=== PATIENT | male | born 1950 | race Caucasian/White ===

== ENCOUNTER 2023-07-04 12:08 | Emergency (ER) | payer MEDICARE, OTHER ==
[2023-07-04 12:29] VITALS: TEMP 98.2
--- NOTE | 2023-07-04 12:34 | ED ---
General Adult HPI - General Chief complaint: Fall Stated complaint: Fall Time Seen by Provider: 07/04/23 12:21 Source: patient Mode of arrival: wheelchair Limitations: no limitations - History of Present Illness Initial comments: Dictation was produced using [employer] dictation software. please excuse any grammatical, word or spelling errors. Chief Complaint: 73-year-old male presents emergency department with left-sided chest pain after fall History of Present Illness: Patient 73-year-old male 2 days his birthday. He states he was getting ready to go out gardening when he fell. He lost his footing after tripping. He landed on his left side on the concrete. Patient complaining of pain to his left lower chest and left upper abdomen. Patient N uys any anticoagulation use. Denies any head trauma. Patient states his pain is worse when he tries to take a deep breath or press in that area. The ROS documented in this emergency department record has been reviewed and confirmed by me. Those systems with pertinent positive or negative responses have been documented in the HPI. All other systems are other negative and/or noncontributory. - Related Data Home Medications Medication Instructions Recorded Confirmed Aspirin 81 mg PO DAILY 01/05/15 01/29/15 Cyanocobalamin [Vitamin B-12] 1,500 mcg PO DAILY 01/05/15 01/29/15 Folic Acid 1,600 mcg PO DAILY 01/05/15 01/29/15 Pantoprazole Sodium 40 mg PO DAILY 01/05/15 01/29/15 Allergies Allergy/AdvReac Type Severity Reaction Status Date / Time No Known Allergies Allergy Verified 07/04/23 12:15 Review of Systems ROS Statement: Those systems with pertinent positive or pertinent negative responses have been documented in the HPI. ROS Other: All systems not noted in ROS Statement are negative. Past Medical History Past Medical History: GERD/Reflux Additional Past Medical History / Comment(s): Does see a Garage Hand to R/O any heart problems because of his GERD. History of Any Multi-Drug Resistant Organisms: None Reported Past Surgical History: Appendectomy, Orthopedic Surgery Additional Past Surgical History / Comment(s): lety foot surgery-fx Past Anesthesia/Blood Transfusion Reactions: No Reported Reaction Past Psychological History: No Psychological Hx Reported Smoking Status: Never smoker Past Alcohol Use History: None Reported Past Drug Use History: None Reported - Past Family History Father Family Medical History: Cancer Additional Family Medical History / Comment(s): Unknown General Exam - General Exam Comments Initial Comments: PHYSICAL EXAM: General Impression: Alert and oriented x3, acute distress secondary to pain HEENT: Normocephalic atraumatic, extra-ocular movements intact, pupils equal and reactive to light bilaterally, mucous membranes moist. Cardiovascular: Heart regular rate and rhythm Chest: Able to complete full sentences, no retractions, no tachypnea Abdomen: abdomen soft, non-tender, non-distended, no organomegaly Musculoskeletal: Pulses present and equal in all extremities, no peripheral edema, palpatory tenderness along the left chest and left upper abdomen Motor: no focal deficits noted Neurological: CN II-XII grossly intact, no focal motor or sensory deficits noted Skin: Intact with no visualized rashes Psych: Normal affect and mood Limitations: no limitations Course Vital Signs 07/04/23 07/04/23 12:13 15:42 Temperature 98.2 F Pulse Rate 97 90 Respiratory 20 18 Rate Blood Pressure 125/82 113/76 O2 Sat by Pulse 97 93 L Oximetry EKG Findings - EKG Comments: EKG Findings:: My EKG interpretation: Ventricular rate 91, normal sinus rhythm, QRS 130, QTc 354, right bundle branch block no VA prolongation, no QTC prolongation, no ST or T-wave changes noted. Overall, this EKG is unremarkable Medical Decision Making - Medical Decision Making Was pt. sent in by a medical professional or institution ([facility] Wan, [facility], urgent care, hospital, or fdc...) When possible be specific @ -No Did you speak to anyone other than the patient for history (EMS, parent, family, police, friend...)? What history was obtained from this source @ -No Did you review nursing and triage notes (agree or disagree)? Why? @ -I reviewed and agree with nursing and triage notes Were old charts reviewed (outside hosp., previous admission, EMS record, old EKG , old radiological studies, urgent care reports/EKG's, fdc records)? Report findings @ -No old charts were reviewed Differential Diagnosis (chest pain, altered mental status, abdominal pain women, abdominal pain men, vaginal bleeding, musculoskeletal, weakness, fever, dyspnea, syncope, headache, dizziness, GI bleed, back pain, seizure, CVA, palpatations, mental health)? @ -Differential Chest Pain: Stable Angina, Unstable Angina, STEMI, NSTEMI Aortic Dissection, Pneumothorax, Musculoskeletal, Esophageal Spasm GERD, Cholecystitis, Pancreatitis, Zoster, this is not meant to be an all-inclusive list. EKG interpreted by me (3pts min.). @ -See above X-rays interpreted by me (1pt min.). @ -None done CT interpreted by me (1pt min.). @ -CT of the M pelvis shows no acute traumatic processes. There is incidental findings of enlarged lymph nodes to the mesentery U/S interpreted by me (1pt. min.). @ -None done What testing was considered but not performed or refused? (CT, X-rays, U/S, labs)? Why? @ -None What meds were considered but not given or refused? Why? @ -None Did you discuss the management of the patient with other professionals (professionals i.e. , PA, [facility] [facility], lab, RT, psych nurse, social science instructor, stevedoring supervisor, teacher, traffic maintenance officer, rn case management)? Give summary @ -No Was smoking cessation discussed for >3mins.? @ -No Was critical care preformed (if so, how long)? @ -No Were there social determinants of health that impacted care today? How? (Homelessness, low income, unemployed, alcoholism, drug addiction, transportation, low edu. Level, literacy, decrease access to med. care, group home, rehab)? @ -No Was there de-escalation of care discussed even if they declined (Discuss DNR or withdrawal of care, Hospice)? DNR status @ -No What co-morbidities impacted this encounter? (DM, HTN, Smoking, COPD, CAD, Cancer, CVA, ARF, Chemo, Hep., AIDS, mental health diagnosis, sleep apnea, morbid obesity)? @ -None Was patient admitted / discharged? Hospital course, mention meds given and route, prescriptions, significant lab abnormalities, going to OR and other perti nent info. @ -73-year-old male presents to the emergency department after open fall. States that he has chest pain and upper abdominal pain to the left. Vital signs stable. Physical examination shows distress male with no obvious traumatic injuries externally. Laboratory evaluation unremarkable. CT shows no acute processes. There were incidental findings that patient was made aware of to fo llow-up with his primary care doctor. Patient given starter pack for pain medications and discharge. Undiagnosed new problem with uncertain prognosis? @ -No Drug Therapy requiring intensive monitoring for toxicity (Heparin, Nitro, Insulin, Cardizem)? @ -No Were any procedures done? @ -No Diagnosis/symptom? Acute, or Chronic, or Acute on Chronic? Uncomplicated (without systemic symptoms) or Complicated (systemic symptoms)? @ -Chest contusion Side effects of treatment? @ -No Exacerbation, Progression, or Severe Exacerbation? @ -No Poses a threat to life or bodily function? How? (Chest pain, USA, VA, pneumonia, PE, COPD, DKA, ARF, appy, cholecystitis, CVA, Diverticulitis, Homicidal, Pugh icidal, threat to staff... and all critical care pts) @ -No - Lab Data Result diagrams: 07/04/23 12:35 07/04/23 12:35 Lab Results 07/04/23 07/04/23 07/04/23 Range/Units 12:35 12:35 12:35 WBC 9.3 (3.8-10.6) k/uL RBC 4.51 (4.30-5.90) m/uL Hgb 14.7 (13.0-17.5) gm/dL Hct 45.2 (39.0-53.0) % MCV 100.1 H (80.0-100.0) fL MCH 32.7 (25.0-35.0) pg MCHC 32.7 (31.0-37.0) g/dL RDW 13.0 (11.5-15.5) % Plt Count 365 (150-450) k/uL MPV 8.5 Neutrophils % 65 % Lymphocytes % 23 % Monocytes % 6 % Eosinophils % 3 % Basophils % 1 % Neutrophils # 6.1 (1.3-7.7) k/uL Lymphocytes # 2.2 (1.0-4.8) k/uL Monocytes # 0.6 (0-1.0) k/uL Eosinophils # 0.3 (0-0.7) k/uL Basophils # 0.1 (0-0.2) k/uL PT 11.2 (10.0-12.5) sec INR 1.0 (<1.2) APTT 22.4 (22.0-30.0) sec Sodium 133 L (137-145) mmol/L Potassium 4.9 (3.5-5.1) mmol/L Chloride 102 (98-107) mmol/L Carbon Dioxide 21 L (22-30) mmol/L Anion Gap 10 mmol/L BUN 19 (9-20) mg/dL Creatinine 0.64 L (0.66-1.25) mg/dL Est GFR (CKD-EPI)AfAm >90 (>60 ml/min/1.73 sqM) Est GFR (CKD-EPI)NonAf >90 (>60 ml/min/1.73 sqM) Glucose 116 H (74-99) mg/dL Calcium 9.0 (8.4-10.2) mg/dL Total Bilirubin 1.2 (0.2-1.3) mg/dL AST 48 (17-59) U/L ALT 34 (4-49) U/L Alkaline Phosphatase 72 (38-126) U/L Total Protein 8.2 (6.3-8.2) g/dL Albumin 4.7 (3.5-5.0) g/dL Lipase 31 (23-300) U/L Disposition Clinical Impression: Contusion, chest wall Disposition: HOME SELF-CARE Condition: Good Instructions (If sedation given, give patient instructions): Fall Prevention for Older Adults (ED) Is patient prescribed a controlled substance at d/c from ED?: No Referrals: Uma Ewing MD [Primary Care Provider] - 1-2 days Time of Disposition: 15:59
[2023-07-04] MEDS: SODIUM CHLORIDE 0.9% 1,000 ML IV STA (12:40)
[2023-07-04] MEDS: MORPHINE SULFATE 4 MG/ML SYRINGE IV STA (12:42)
[2023-07-04 12:54] LABS: Basophils # (A) 0.1 k/uL (0-0.2); Basophils % (A) 1 %; Eosinophils # (A) 0.3 k/uL (0-0.7); Eosinophils % (A) 3 %; HCT 45.2 % (39.0-53.0); HGB 14.7 gm/dL (13.0-17.5); Lymphocytes # (A) 2.2 k/uL (1.0-4.8); Lymphocytes % (A) 23 %; MCH 32.7 pg (25.0-35.0); MCHC 32.7 g/dL (31.0-37.0); MCV 100.1 fL (80.0-100.0); Mean Platelet Volume 8.5; Monocytes # (A) 0.6 k/uL (0-1.0); Monocytes % (A) 6 %; Neutrophils # (A) 6.1 k/uL (1.3-7.7); Neutrophils % (A) 65 %; Platelet Count 365 k/uL (150-450); RBC 4.51 m/uL (4.30-5.90); WBC 9.3 k/uL (3.8-10.6)
[2023-07-04 13:04] LABS: Partial Thromboplastin Time 22.4 sec (22.0-30.0); Prothrombin Time 11.2 sec (10.0-12.5)
[2023-07-04] MEDS: HYDROmorphone 1 MG/ML 1 ML SYRINGE IVP STA ×2 (13:16→15:18)
[2023-07-04 13:35] LABS: ALT 34 U/L (4-49); African American GFR (CKD) >90 (>60 ml/min/1.73 sqM); Albumin 4.7 g/dL (3.5-5.0); Anion Gap 10 mmol/L; Blood Urea Nitrogen 19 mg/dL (9-20); Carbon Dioxide 21 mmol/L (22-30); Chloride 102 mmol/L (98-107); Glucose 116 mg/dL (74-99); Lipase 31 U/L (23-300); Non-African American GFR(CKD) >90 (>60 ml/min/1.73 sqM); Sodium 133 mmol/L (137-145); Total Bilirubin 1.2 mg/dL (0.2-1.3); Total Protein 8.2 g/dL (6.3-8.2)
[2023-07-04 13:38] LABS: AST 48 U/L (17-59); Alkaline Phosphatase 72 U/L (38-126); Potassium 4.9 mmol/L (3.5-5.1)
--- NOTE | 2023-07-04 15:41 | CT ---
EXAMINATION TYPE: CT ChestAbdPelvis w con DATE OF EXAM: 07/04/2023 INDICATION: Pt fall, c/o severe pain on LT side COMPARISON: None CT DLP: 1989.9 mGycm CONTRAST: Performed without Oral Contrast and with IV Contrast, patient injected with 100 mL of Isovue 300. TECHNIQUE: Axial images at 5 mm thick sections. Reconstructed images in the coronal plane. Delayed images through the kidneys. FINDINGS: CT CHEST: Portion of the thyroid visualized is normal. No suspicious lung nodules or focal infiltrates are present. No enlarged mediastinal or hilar adenopathy is evident. Some calcified lymphadenopathy is within the subcarinal region and within the right infrahilar region. Some pleural calcifications on the posterior lateral right lung. Some minimal calcifications within p leural margins on the left. Calcifications along the right diaphragm. Correlate for prior asbestos ex posure. The ascending aorta diameter at the level of the main pulmonary artery is 4.1 cm. The main pulmonary artery diameter at the bifurcation is 3.[address] ABDOMEN: There are scattered lymph nodes within the mid abdomen. These are borderline in size. Mil d increased density is within the surrounding mesenteric fat. Example image series 201 image 83. Kyle tional workup is recommended. Consider lymphoma within the differential. Liver: Mild fatty alterations within the liver Spleen: Normal Pancreas: There is fatty infiltration of the pancreas. Adrenal glands: The adrenal glands are normal. Gallbladder: Distended Kidneys: No masses are evident. No hydronephrosis is present. No cysts are present. Delayed images were obtained through the kidneys, which remain unremarkable. Aorta: Vascular calcification is within the aorta. Inferior vena cava: Normal. CT PELVIS: Loops of bowel within the abdomen and pelvis are normal. This study is without oral contrast limi ting bowel evaluation. Appendix: Not identified. No dilated tubular structure or inflammatory changes evident. Urinary bladder: Distended Genitourinary structures: Prostate contains calcification. Osseous structures: No suspicious lytic or sclerotic lesions. No displaced rib fractures are evident. There is some kyphosis of the lower thoracic spine. Schmorl's node formation is likely lower thoraci c vertebral body T9. IMPRESSION: 1. No acute posttraumatic changes identified. 2. Mild mesenteric increased density with multiple borderline size lymph nodes within the mid mesente ry. Finding is nonspecific. Consider lymphoma within the differential. Follow-up is recommended. 3. Clinical consideration for prior asbestos exposure.
[2023-07-04 16:04] VITALS: BP 113/76; PULSE 90; RESP 18
[2023-07-04] MEDS: LIDOCAINE 4% PATCH TOPICAL ONE (16:06)
[2023-07-04] MEDS: ACET/COD 300 MG/30 MG STARTER PACK 6 TAB BTL PO STA (16:07)
== END 2023-07-04 16:15 | disposition home or self-care (01) ==
LOC: EC 12:08
DX: S20.219A Contusion of unspecified front wall of thorax, initial encounter (principal); W01.0XXA Fall on same level from slipping, tripping and stumbling without subsequent striking against object, initial encounter
CPT/HCPCS: 99285; 96374; 96375; 96376; 36415; 93005; 80053; 83690; 85025; 85610; 85730; 71260; 74177; J2270; J1170; Q9967; 96361

== ENCOUNTER → 2024-07-31 | Outpatient (CLI) | payer MEDICARE ==
[2024-07-31 15:04] LABS: Basophils # (A) 0.07 X 10*3/uL (0.00-0.10); Basophils % (A) 0.9 %; Eosinophils # (A) 0.16 X 10*3/uL (0.04-0.35); HCT 44.1 % (39.6-50.0); HGB 14.9 g/dL (13.0-17.0); Lymphocytes # (A) 1.83 X 10*3/uL (0.90-5.00); Lymphocytes % (A) 23.1 %; MCH 33.1 pg (27.0-32.0); MCHC 33.8 g/dL (32.0-37.0); Monocytes # (A) 0.83 X 10*3/uL (0.20-1.00); Monocytes % (A) 10.5 %; NRBC Per 100 WBC 0 X 10*3/uL (0.00-0.01); Neutrophils # (A) 5.01 X 10*3/uL (1.80-7.70); Neutrophils % (A) 63.2 %; Platelet Count 317 X 10*3/uL (140-440); RDW 13.5 % (11.5-14.5); WBC 7.92 X 10*3/uL (4.50-10.00)
[2024-07-31 15:19] LABS: Carbon Dioxide 26.9 mmol/L (21.6-31.8); Chloride 102 mmol/L (96-109); Potassium 3.9 mmol/L (3.5-5.5); Sodium 141 mmol/L (135-145)
== END | disposition home or self-care (01) ==
LOC: LABPAT 10:42
PROVIDERS: ATTEND Internal Medicine Interventional Cardiology
DX: Z01.812 Encounter for preprocedural laboratory examination (principal); R07.9 Chest pain, unspecified
CPT/HCPCS: 80051; 82565; 84520; 85025

== ENCOUNTER 2024-08-23 06:11 | Day surgery (SDC) | payer MEDICARE, OTHER ==
[~2024-08-23 06:11] MED LIST: ALPRAZolam 0.25 MG TAB PO PRN; ALPRAZolam 0.5 MG TAB PO PRN; NITROGLYCERIN SL TABS 0.4 MG TAB SUBLINGUAL PRN
[2024-08-23] MEDS: SODIUM CHLORIDE 0.9% 1,000 ML in EMPTY BAG 1 BAG IV SCH (06:47)
[2024-08-23] MEDS: ATORVASTATIN 80 MG TAB PO STA (06:48)
[2024-08-23] MEDS: IV FLUID CONTINUATION 1,000 ML IV ONE (06:48)
[2024-08-23] MEDS: ASPIRIN 325 MG TAB PO STA (06:48)
[2024-08-23 06:51] VITALS: TEMP 97.8
[2024-08-23] MEDS: MIDAZOLAM 2 MG/2 ML VIAL IVP ONE (08:59)
[2024-08-23] MEDS: LIDOCAINE 1% INJ 10MG/ML (20 ML MDV) SQ ONE ×2 (09:02→09:03)
[2024-08-23] MEDS: VERAPAMIL SYRINGE (5 MG/10 ML) INTRAARTER ONE (09:03)
[2024-08-23] MEDS: HEPARIN SODIUM 1,000 UN/ML (10ML VL) IVP ONE (09:05)
[2024-08-23] MEDS: fentaNYL (PF) 50 MCG/1 ML VIAL IVP ONE (09:09)
[2024-08-23] MEDS: HEPARIN SODIUM,PORCINE 10,000 UNIT in SODIUM CHLORIDE 0.9% 1,000 ML IRRIGATION PRN (09:11)
[2024-08-23] MEDS: HEPARIN SODIUM,PORCINE (1 ML) 2,500 UNIT in SODIUM CHLORIDE 0.9% 250 ML IRRIGATION PRN (09:11)
[2024-08-23] MEDS: IOPAMIDOL-370 100ML BTL INJ ONE (09:11)
[2024-08-23] MEDS ORDERED: RX INFO: IV CONTRAST WAS GIVEN 1 EACH MISC MISCELLANE PRN (09:28)
[2024-08-23] MEDS ORDERED: SODIUM CHLORIDE 0.9% 1,000 ML IV SCH (09:30)
--- NOTE | 2024-08-23 09:31 | P.PCN ---
Date of Procedure: 08/23/24 Operative Findings: CARDIAC CATHETERIZATION PERFORMING PHYSICIAN: Scooter Grider MD, RPVI PROCEDURE PERFORMED: 1. Selective right and left coronary angiogram 2. Left heart catheterization 3. Ultrasound-guided access of the right radial artery INDICATION: Chest discomfort concerning for angina COMPLICATION: None APPROACH: Right radial artery LEVEL OF SEDATION: Moderate with a sedation length of 11 minutes PROCEDURE DESCRIPTION: After obtaining an informed consent, the patient was brought to cardiac calibration laboratory technician. Local anesthesia was performed using lidocaine subcutaneously. The right radial artery was cannulated using Seldinger technique, under ultrasound guidance, the guidewire passed easily, following that we advanced a 5-Surinamese sheath dilator assembly, the wire and dilator were removed and sheath was flushed. Following that, 2 mg of verapamil along with 5000 unit heparin were given. Selective right and left coronary angiogram using a 5-Surinamese JR4 and JL 3.5 catheters. Following that we did left heart catheterization using 5-Surinamese pigtail catheter. The procedure was completed there was no complication. SELECTIVE CORONARY ANGIOGRAM: The right coronary artery: Large caliber vessel and a dominant vessel with mild to moderate disease involving the proximal portion Left main: Has mild to moderate disease appears to be in the range of 20 to 30% all The left circumflex: Large caliber vessel nondominant vessel with no evidence of high-grade stenosis The left anterior descending artery: Large caliber vessel with no evidence of high-grade stenosis as well HEMODYNAMICS: The LVEDP was 8 mmHg with no significant gradient across aortic valve CONCLUSION: 1. 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 Normal left-sided filling pressure POSTPROCEDURE MANAGEMENT: Medical treatment
[2024-08-23 11:27] VITALS: BP 117/64
[2024-08-23 11:39] VITALS: PULSE 66
[2024-08-23 12:05] VITALS: RESP 16
== END 2024-08-23 12:31 | disposition home or self-care (01) ==
LOC: CATHCVL 06:11
PROVIDERS: ATTEND Internal Medicine Interventional Cardiology
DX: I25.110 Atherosclerotic heart disease of native coronary artery with unstable angina pectoris (principal); I10 Essential (primary) hypertension; E78.5 Hyperlipidemia, unspecified; I77.810 Thoracic aortic ectasia; I08.3 Combined rheumatic disorders of mitral, aortic and tricuspid valves; I65.23 Occlusion and stenosis of bilateral carotid arteries; Z79.51 Long term (current) use of inhaled steroids; Z79.82 Long term (current) use of aspirin; Z79.899 Other long term (current) drug therapy; Z87.891 Personal history of nicotine dependence
CPT/HCPCS: 93458; C1769; C1894; J2250; J1644 ×3; J2003; Q9967; J3010

== ENCOUNTER → 2024-08-26 | Outpatient (CLI) | payer OTHER ==
--- NOTE | 2024-08-26 15:11 | CTL ---
EXAMINATION TYPE: CT Low Dose Lung DATE OF EXAM: 08/26/2024 3:00 PM COMPARISON: 07/04/2023. CLINICAL INDICATION: Male, 74 years old with history of Z12.2 LUNG CA SCR Z87.891; pt quit smoking 15 years ago, pt smoked 1 1/2 pks/day x 30-40 yrs, history of tobacco use. TECHNIQUE: Multiple axial non-contrast scans were obtained from approximately the lung apices through the upper abdomen. Coronal and sagittal reformatted images were obtained. Low dose technique was uti lized. MIP were created on a separate workstation and submitted for review. CT DLP: 93 mGycm, Automated exposure control for dose reduction was used. CT Contrast: Contrast used: None Oral contrast used: None FINDINGS: Lack of intravenous contrast and low dose technique limits the evaluation of the vascular and soft ti ssue structures. LUNGS: No evidence of pulmonary fibrosis. No evidence of focal consolidation, pneumothorax or pleural effusion. Centrilobular emphysema changes. Calcifications along the right diaphragm. An scattered th roughout the pleura. Nodules: RUL: None. RML: None. RLL: None. ADEEL: None. LLL: None. AIRWAY: Patent and unremarkable. HEART: Size within normal limits. No significant coronary artery calcifications. MEDIASTINUM: No gross evidence of adenopathy. VASCULATURE: No aortic aneurysm. MUSCULOSKELETAL: Moderate disc degeneration changes are present throughout the thoracolumbar spine. N ew compression deformity of the T7 vertebral body with near complete height loss centrally. SOFT TISSUES/LYMPH NODES: Unremarkable. LOWER NECK: No significant findings. UPPER ABDOMEN: No significant findings. IMPRESSION: 1. No clinically significant pulmonary nodules. 2. Mild emphysema. 3. Scattered pleural calcifications correlate for history of asbestos acute exposure. 4. New compression deformity of the T7 vertebral body with near complete height loss centrally. Corre lated back pain considered MRI evaluation. CT LUNG RAD AND CT CHEST RECOMMENDATION: Lung-Rad 1 Negative: Continue annual screening with LDCT in 12 months. S Modifier (other clinically significant findings): None Recommend smoking cessation (if current smoker), or continuation of smoking cessation (if prior smoke r). Annual screening for lung cancer with low-dose computed tomography is recommended in adults ages 55 to 77 years who have a 30 pack-year smoking history and currently smoke or have quit within the pa st 15 years. Screening should be discontinued once a person has not smoked for 15 years or develops a health problem that substantially limits life expectancy or the ability or willingness to have curat lory lung surgery. Lung rads 2021 [email or web address] [facility], , 08/26/2024 3:09 PM
== END | disposition home or self-care (01) ==
LOC: RADCTMAIN 14:12
PROVIDERS: ATTEND Internal Medicine Pulmonary Disease
DX: Z12.2 Encounter for screening for malignant neoplasm of respiratory organs (principal); M48.54XA Collapsed vertebra, not elsewhere classified, thoracic region, initial encounter for fracture; J98.4 Other disorders of lung; J43.2 Centrilobular emphysema; Z87.891 Personal history of nicotine dependence
CPT/HCPCS: 71271

== ENCOUNTER → 2024-10-17 | Outpatient (CLI) | payer MEDICARE ==
[2024-10-17 15:16] LABS: Basophils # (A) 0.05 X 10*3/uL (0.00-0.10); Basophils % (A) 0.8 %; Eosinophils # (A) 0.07 X 10*3/uL (0.04-0.35); Eosinophils % (A) 1.1 %; HCT 43.0 % (39.6-50.0); HGB 14.6 g/dL (13.0-17.0); Immature Grans, Automated 0.30 %; Lymphocytes # (A) 1.83 X 10*3/uL (0.90-5.00); Lymphocytes % (A) 27.7 %; MCH 31.4 pg (27.0-32.0); MCHC 34.0 g/dL (32.0-37.0); MCV 92.5 FL (80.0-97.0); Monocytes # (A) 0.62 X 10*3/uL (0.20-1.00); Monocytes % (A) 9.4 %; NRBC Per 100 WBC 0 X 10*3/uL (0.00-0.01); Neutrophils # (A) 4.02 X 10*3/uL (1.80-7.70); Neutrophils % (A) 60.7 %; Platelet Count 314 X 10*3/uL (140-440); RBC 4.65 X 10*6/uL (4.40-5.60); RDW 14.1 % (11.5-14.5); WBC 6.61 X 10*3/uL (4.50-10.00)
[2024-10-17 15:37] LABS: ALT 46 U/L (10-49); AST 44 U/L (14-35); Albumin 3.7 g/dL (3.8-4.9); Albumin/Globulin Ratio 1.48 Ratio (1.60-3.17); Alkaline Phosphatase 102 U/L (41-126); Anion Gap 12.90 mmol/L (4.00-12.00); BUN/Creat Ratio 16.60 Ratio (12.00-20.00); Blood Urea Nitrogen 8.3 mg/dL (9.0-27.0); Calcium 8.5 mg/dL (8.7-10.3); Carbon Dioxide 24.1 mmol/L (21.6-31.8); Chloride 97 mmol/L (96-109); Globulin 2.5 g/dL (1.6-3.3); Glucose 104 mg/dL (70-110); Immunoglobulin G 1085.0 mg/dL (700.0-1600.0); Potassium 3.0 mmol/L (3.5-5.5); Sodium 134 mmol/L (135-145); Total Protein 6.2 g/dL (6.2-8.2)
== END | disposition home or self-care (01) ==
LOC: LABWHC1 11:26
PROVIDERS: ATTEND Nurse Practitioner Family
DX: K52.9 Noninfective gastroenteritis and colitis, unspecified (principal)
CPT/HCPCS: 36415; 80053; 82784; 85025